=== PATIENT | male | born 1960 | race Caucasian/White ===

== ENCOUNTER 2019-02-18 05:50 | Emergency (ER) | payer MEDICAID ==
[~2019-02-18] VITALS: Ht 172.7 cm; Wt 85.0 kg
[~2019-02-18 05:50] MED LIST: ALBU8.5H8 IH; CARV-49 PO; DOXY-243 PO; FURO40TA4 PO; HYDR-4353 PO; IPRA3AMP9 NEB; LISI2.5T2 PO; POTA10CA44 PO
[2019-02-18 05:53] VITALS: BP 159/91
[2019-02-18] MEDS ORDERED: POLOS RIGHTEYE (06:24)
--- NOTE | 2019-02-18 06:27 | NUR ---
[facility] and received report from Singh THOMAS.
== END 2019-02-18 06:50 | disposition home or self-care (01) ==
LOC: ER 05:51
DX: B99.9 Unspecified infectious disease (principal); H10.89 Other conjunctivitis; H57.11 Ocular pain, right eye; J44.9 Chronic obstructive pulmonary disease, unspecified; I50.9 Heart failure, unspecified; E11.9 Type 2 diabetes mellitus without complications; F12.90 Cannabis use, unspecified, uncomplicated; F15.90 Other stimulant use, unspecified, uncomplicated; Z86.19 Personal history of other infectious and parasitic diseases; Z79.899 Other long term (current) drug therapy; Z88.8 Allergy status to other drugs, medicaments and biological substances
CPT/HCPCS: 99283

== ENCOUNTER 2019-04-24 23:45 | Inpatient (IN) | payer MEDICAID ==
[~2019-04-24] VITALS: Ht 172.7 cm; Wt 85.0 kg
[2019-04-25 01:13] LABS: BASOPHILS % (AUTO) 0.6 % (0-1); EOSINOPHILS # (AUTO) 0.1 X10'3 (0-0.9); EOSINOPHILS % (AUTO) 1.1 % (0-6); HEMATOCRIT 36.5 % (42.0-52.0); HEMOGLOBIN 12.7 g/dl (14.0-17.9); LYMPHOCYTES % (AUTO) 15.6 % (21-51); MEAN CORPUSCULAR HEMOGLOBIN 29.1 PG (27.0-31.0); MEAN CORPUSCULAR HGB CONC 34.8 g/dL (33.0-36.5); MEAN CORPUSCULAR VOLUME 83.4 FL (78-98); MEAN PLATELET VOLUME 9.8 FL (7.4-10.4); MONOCYTES # (AUTO) 0.5 X10'3 (0-0.9); MONOCYTES % (AUTO) 7.5 % (2-12); NEUTROPHILS % (AUTO) 75.2 % (42-75); PLATELET COUNT 197 X10'3 (140-440); RED BLOOD COUNT 4.37 X10'6 (4.70-6.10); RED CELL DISTRIBUTION WIDTH 14.4 % (11.5-14.5); WHITE BLOOD COUNT 6.6 X10'3 (4.5-11.0)
[2019-04-25 01:20] LABS: ALANINE AMINOTRANSFERASE 46 U/L (12-78); ALBUMIN 2.7 G/DL (3.4-5.0); ALBUMIN/GLOBULIN RATIO 0.5 (1.1-1.5); ALKALINE PHOSPHATASE 87 IU/L (46-116); ANION GAP 8 (8-16); ASPARTATE AMINO TRANSFERASE 37 U/L (10-37); BLOOD UREA NITROGEN 14 MG/DL (7-18); BUN/CREATININE RATIO 11.4 (5.4-32.0); CALCIUM 8.1 MG/DL (8.5-10.1); CHLORIDE 102 MMOL/L (99-107); CREATININE 1.23 MG/DL (0.60-1.10); GLUCOSE 175 MG/DL (70-104); POTASSIUM 4.1 MMOL/L (3.5-5.1); SODIUM 136 MMOL/L (135-145); TOTAL CARBON DIOXIDE 25.9 MMOL/L (24-32); TOTAL PROTEIN 7.7 G/DL (6.4-8.2); eGFR 61 ML/MIN
[2019-04-25] MEDS ORDERED: aspirin 81mg tab.chew PO ONE (01:40)
[2019-04-25] MEDS ORDERED: SPIR25TA5 PO (02:31)
[2019-04-25] MEDS ORDERED: ASPI-1265 PO (02:31)
[2019-04-25] MEDS ORDERED: FURO-150 PO (02:31)
[2019-04-25] MEDS ORDERED: LISI-600 PO (02:31)
[2019-04-25] MEDS ORDERED: ATOR20TA PO (02:31)
[2019-04-25] MEDS ORDERED: POTA10CA44 PO (02:32)
[2019-04-25] MEDS ORDERED: enoxaparin 100mg/ml syringe SUBCUT ONE (02:45)
[2019-04-25] MEDS ORDERED: furosemide 10 MG/1 ML 10ml inj IV ONE (02:45)
[2019-04-25] MEDS ORDERED: magnesium Cl slow-release 64mg tablet PO PRN (02:55)
[2019-04-25] MEDS ORDERED: potassium Cl 20 mEq SR tablet PO PRN ×2 (02:55)
[2019-04-25] MEDS ORDERED: acetaminophen 325mg tablet PO PRN (02:55)
[2019-04-25] MEDS ORDERED: mag hydrox/Alum hydrox/simeth 30ml oral suspension PO PRN (02:55)
[2019-04-25] MEDS ORDERED: magnesium 2GM in 50ml NS 50 ML IV PRN (02:55)
[2019-04-25] MEDS ORDERED: ondansetron/PF 4mg/2ml inj IV PRN (02:55)
[2019-04-25] MEDS ORDERED: potassium CL 10mEq/100ml bag 100 ML IV PRN ×2 (02:55)
[2019-04-25] MEDS ORDERED: morphine 2 MG/ML inj. syringe IV PRN ×2 (02:55)
[2019-04-25] MEDS ORDERED: HYDROcodone/acetaminophen 5mg/325mg tablet PO PRN (02:55)
[2019-04-25] MEDS ORDERED: magnesium hydroxide 30ml (MOM) UD suspension PO PRN (02:55)
[2019-04-25] MEDS ORDERED: magnesium 4gm in 100ml NS 100 ML IV PRN (02:55)
--- NOTE | 2019-04-25 06:58 | NUR ---
6 HOUR TROPONIN DRAWN FROM PT IV IN RIGHT HAND.
[2019-04-25 07:30] VITALS: BP 125/79
[2019-04-25] MEDS: K and/or MAG REPLACEMENT MC SCH ×2 (08:00→20:00)
[2019-04-25] MEDS ORDERED: carvedilol 6.25mg tablet PO SCH (08:00)
[2019-04-25] MEDS ORDERED: potassium Cl 20 mEq SR tablet PO SCH (08:00)
--- NOTE | 2019-04-25 08:47 | NUR ---
PAGER ID: [phone] MESSAGE: Kareem [id number]. Pt came from ED with no diet. Can I put in a CC diet order? Blanquita [id number]
[2019-04-25] MEDS: spironolactone 25 MG tablet PO SCH (10:40)
[2019-04-25] MEDS: furosemide 40mg/4ml inj IV SCH ×2 (10:40→19:46)
[2019-04-25] MEDS: aspirin 81mg tab.chew PO SCH (10:41)
[2019-04-25] MEDS: lisinopril 20mg tablet PO SCH (10:42)
[2019-04-25 11:00] VITALS: BP 99/58
[2019-04-25 11:18] LABS: CLARITY,URINE CLEAR (Clear); COLOR,URINE YELLOW (Yellow); GLUCOSE, URINE NEGATIVE (Neg); KETONES,URINE NEGATIVE (Neg); LEUKOCYTE ESTERASE ,URINE NEGATIVE (Neg); NITRITES, URINE NEGATIVE (Neg); OCCULT BLOOD,URINE MODERATE (Neg); PH,URINE 5.5 (4.8-8.0); PROTEIN,URINE NEGATIVE (Neg)
[2019-04-25 11:25] LABS: UA COLLECTION TYPE CLN CATCH MIDSTREAM; URINE AMPHETAMINE SCREEN POSITIVE (Neg); URINE BARBITUATE SCREEN NEGATIVE (Neg); URINE BENZODIAZEPINES SCREEN NEGATIVE (Neg); URINE CANNABINOID SCREEN NEGATIVE (Neg); URINE COCAINE SCREEN NEGATIVE (Neg); URINE METHADONE SCREEN NEGATIVE (Neg); URINE OPIATE SCREEN NEGATIVE (Neg); URINE PHENCYCLIDINE SCREEN NEGATIVE (Neg)
[2019-04-25 11:26] LABS: BACTERIA,URINE NONE SEEN /HPF (Neg); MUCUS STRANDS NONE SEEN /LPF (Neg); RBC,URINE 0-2 /HPF (0-2); SQUAMOUS EPITHELIAL CELL,UR NONE SEEN /LPF (FEW); WBC,URINE NONE SEEN /HPF (0-4)
[2019-04-25 12:08] LABS: HEMOGLOBIN A1C 7.9 % (4.5-6.2)
[2019-04-25 12:15] LABS: CHOL/HDL RATIO 4.3 (0.00-4.99); CHOLESTEROL 102 MG/DL (0-200); HDL CHOLESTEROL 24 MG/DL (35-60); LDL CHOLESTEROL 72 MG/DL (50-100); TRIGLYCERIDES 67 MG/DL (20-135)
[2019-04-25 12:50] LABS: MAGNESIUM 1.4 MG/DL (1.5-2.4); PHOSPHORUS 3.6 MG/DL (2.3-4.5)
[2019-04-25] MEDS ORDERED: magnesium 2GM in 50ml NS 50 ML IV ONE (13:20)
[2019-04-25] MEDS: VANCOMYCIN 1gm/H2O 200ml PB 200 ML IV SCH (14:33)
[2019-04-25 15:00] VITALS: BP 109/55
[2019-04-25] MEDS: CefTRIAXone/D5W-Rocephin 1gm 50 ML IV SCH (17:42)
--- NOTE | 2019-04-25 18:21 | NUR ---
Problems reprioritized. Patient report given, questions answered & plan of care reviewed with Karolina THOMAS.
--- NOTE | 2019-04-25 18:54 | NUR ---
Patient in room PCU 3016. I have received report from MARTHA Juares and had the opportunity to ask questions and assume patient care.
[2019-04-25 18:55] VITALS: BP 103/56
[2019-04-25] MEDS ORDERED: CARV-50 PO (18:55)
[2019-04-25] MEDS ORDERED: POTA8TAB57 PO (18:55)
[2019-04-25] MEDS: magnesium Cl slow-release 64mg tablet PO SCH (19:41)
[2019-04-25] MEDS: lactobacillus rhamnosus 10,000 MMU CELLS/CAPSULE PO SCH (19:43)
[2019-04-25] MEDS: carVEDilol 12.5mg tablet PO SCH (19:44)
[2019-04-25] MEDS ORDERED: atorvastatin 20mg tablet PO SCH (21:00)
--- NOTE | 2019-04-25 21:16 | NUR ---
Patient taken off of Warfarin 5 months ago Addendum: 04/25/19 at 2131 by Stephania Hodge RN Amended: Links added.
[2019-04-25] MEDS: enoxaparin 80mg/0.8ml syringe SUBCUT SCH (21:47)
[2019-04-25 23:43] VITALS: BP 93/57
[2019-04-26] VITALS (8 sets, daily range): BP systolic 88–128; BP diastolic 42–72
[2019-04-26] MEDS: VANCOMYCIN 1gm/H2O 200ml PB 200 ML IV SCH ×2 (01:56→14:37)
[2019-04-26 05:01] LABS: ALBUMIN 2.3 G/DL (3.4-5.0); ANION GAP 4 (8-16); BLOOD UREA NITROGEN 24 MG/DL (7-18); BUN/CREATININE RATIO 17.3 (5.4-32.0); CHLORIDE 103 MMOL/L (99-107); CREATININE 1.39 MG/DL (0.60-1.10); GLUCOSE 196 MG/DL (70-104); MAGNESIUM 1.8 MG/DL (1.5-2.4); SODIUM 137 MMOL/L (135-145); TOTAL CARBON DIOXIDE 30.2 MMOL/L (24-32); eGFR 53 ML/MIN
[2019-04-26 05:02] LABS: POTASSIUM 4.1 MMOL/L (3.5-5.1)
[2019-04-26 05:11] LABS: BASOPHILS % (AUTO) 0.3 % (0-1); EOSINOPHILS # (AUTO) 0.1 X10'3 (0-0.9); EOSINOPHILS % (AUTO) 1.8 % (0-6); HEMATOCRIT 36.7 % (42.0-52.0); HEMOGLOBIN 12.6 g/dl (14.0-17.9); LYMPHOCYTES # (AUTO) 1.2 X10'3 (1.1-4.8); LYMPHOCYTES % (AUTO) 28.4 % (21-51); MEAN CORPUSCULAR HEMOGLOBIN 28.4 PG (27.0-31.0); MEAN CORPUSCULAR HGB CONC 34.3 g/dL (33.0-36.5); MEAN CORPUSCULAR VOLUME 82.7 FL (78-98); MEAN PLATELET VOLUME 10.2 FL (7.4-10.4); MONOCYTES # (AUTO) 0.5 X10'3 (0-0.9); MONOCYTES % (AUTO) 11.9 % (2-12); NEUTROPHILS # (AUTO) 2.5 X10'3 (1.8-7.7); NEUTROPHILS % (AUTO) 57.6 % (42-75); PLATELET COUNT 136 X10'3 (140-440); RED BLOOD COUNT 4.44 X10'6 (4.70-6.10); RED CELL DISTRIBUTION WIDTH 14.4 % (11.5-14.5); WHITE BLOOD COUNT 4.3 X10'3 (4.5-11.0)
--- NOTE | 2019-04-26 06:03 | NUR ---
Problems reprioritized. Patient report given, questions answered & plan of care reviewed with MARTHA Juares.
--- NOTE | 2019-04-26 06:25 | NUR ---
Patient in room PCU 3014. I have received report from Stephania THOMAS and had the opportunity to ask questions and assume patient care.
[2019-04-26] MEDS: K and/or MAG REPLACEMENT MC SCH ×2 (07:21→20:02)
[2019-04-26] MEDS: spironolactone 25 MG tablet PO SCH (08:00)
[2019-04-26] MEDS: carVEDilol 12.5mg tablet PO SCH (08:00)
[2019-04-26] MEDS: lisinopril 20mg tablet PO SCH (08:00)
[2019-04-26] MEDS: furosemide 40mg/4ml inj IV SCH ×2 (08:00→20:08)
[2019-04-26] MEDS: lactobacillus rhamnosus 10,000 MMU CELLS/CAPSULE PO SCH ×2 (09:11→20:07)
[2019-04-26] MEDS: aspirin 81mg tab.chew PO SCH (09:12)
[2019-04-26] MEDS: magnesium Cl slow-release 64mg tablet PO SCH ×2 (09:12→20:07)
[2019-04-26] MEDS: potassium chloride 8mEq ER tablet PO SCH (09:13)
[2019-04-26] MEDS: CefTRIAXone/D5W-Rocephin 1gm 50 ML IV SCH (09:13)
[2019-04-26] MEDS: enoxaparin 80mg/0.8ml syringe SUBCUT SCH ×2 (09:27→20:08)
--- NOTE | 2019-04-26 16:12 | NUR ---
DM consult, Hgb A1c is 7.9; Patient given written DM education handout with verbal review and referral to outpatient DM education class on Friday. Patient would like double protein with meals d/w dietary. Addendum: 04/26/19 at [address] Amended: Links added.
--- NOTE | 2019-04-26 18:16 | NUR ---
Problems reprioritized. Patient report given, questions answered & plan of care reviewed with [place] THOMAS.
--- NOTE | 2019-04-26 18:30 | NUR ---
[place]rientee documentation: I have reviewed and agree with interventions, assessments performed and documented by Yani THOMAS. [place] Medication Administration: For this medication-pass time frame, medication were reviewed, dispensed, administered and documented per hospital policy by Yani THOMAS .
--- NOTE | 2019-04-26 18:39 | NUR ---
Patient in room PCU 3009. I have received report from Blanquita Timmons RN and had the opportunity to ask questions and assume patient care.
[2019-04-26] MEDS: carvedilol 6.25mg tablet PO SCH (20:07)
[2019-04-26] MEDS: mineral oil/petrolatum, white cream 113gm jar TP SCH (20:28)
[2019-04-27] MEDS ORDERED: VANCOMYCIN LEVEL IV ONE (01:30)
[2019-04-27] MEDS: VANCOMYCIN 1gm/H2O 200ml PB 200 ML IV SCH (01:44)
[2019-04-27 02:00] VITALS: BP 95/62
[2019-04-27 02:06] LABS: BASOPHILS % (AUTO) 0.6 % (0-1); EOSINOPHILS # (AUTO) 0.1 X10'3 (0-0.9); EOSINOPHILS % (AUTO) 1.8 % (0-6); HEMATOCRIT 36.7 % (42.0-52.0); HEMOGLOBIN 12.7 g/dl (14.0-17.9); LYMPHOCYTES % (AUTO) 25.9 % (21-51); MEAN CORPUSCULAR HEMOGLOBIN 28.6 PG (27.0-31.0); MEAN CORPUSCULAR HGB CONC 34.6 g/dL (33.0-36.5); MEAN CORPUSCULAR VOLUME 82.7 FL (78-98); MEAN PLATELET VOLUME 10.1 FL (7.4-10.4); MONOCYTES # (AUTO) 0.4 X10'3 (0-0.9); MONOCYTES % (AUTO) 10.1 % (2-12); NEUTROPHILS # (AUTO) 2.3 X10'3 (1.8-7.7); NEUTROPHILS % (AUTO) 61.6 % (42-75); PLATELET COUNT 155 X10'3 (140-440); RED BLOOD COUNT 4.43 X10'6 (4.70-6.10); RED CELL DISTRIBUTION WIDTH 14.8 % (11.5-14.5); WHITE BLOOD COUNT 3.7 X10'3 (4.5-11.0)
[2019-04-27 02:13] LABS: ALBUMIN 2.4 G/DL (3.4-5.0); ANION GAP 7 (8-16); BLOOD UREA NITROGEN 19 MG/DL (7-18); BUN/CREATININE RATIO 15.2 (5.4-32.0); CALCIUM 7.8 MG/DL (8.5-10.1); CHLORIDE 102 MMOL/L (99-107); CREATININE 1.25 MG/DL (0.60-1.10); GLUCOSE 188 MG/DL (70-104); MAGNESIUM 1.6 MG/DL (1.5-2.4); POTASSIUM 3.9 MMOL/L (3.5-5.1); SODIUM 136 MMOL/L (135-145); TOTAL CARBON DIOXIDE 27.3 MMOL/L (24-32); VANCOMYCIN,TROUGH 10.5 UG/ML (6.0-14.0); eGFR 60 ML/MIN
[2019-04-27 06:00] VITALS: BP 112/70
--- NOTE | 2019-04-27 06:05 | NUR ---
Problems reprioritized. Patient report given, questions answered & plan of care reviewed with Blanquita Timmons RN.
[2019-04-27] MEDS: K and/or MAG REPLACEMENT MC SCH (08:00)
[2019-04-27] MEDS: mineral oil/petrolatum, white cream 113gm jar TP SCH (08:00)
[2019-04-27] MEDS ORDERED: lisinopril 10 MG tablet PO SCH (08:00)
[2019-04-27] MEDS: enoxaparin 80mg/0.8ml syringe SUBCUT SCH (08:05)
[2019-04-27] MEDS: aspirin 81mg tab.chew PO SCH (08:05)
[2019-04-27] MEDS: furosemide 40mg/4ml inj IV SCH (08:05)
[2019-04-27] MEDS: spironolactone 25 MG tablet PO SCH (08:05)
[2019-04-27] MEDS: magnesium Cl slow-release 64mg tablet PO SCH (08:06)
[2019-04-27] MEDS: lactobacillus rhamnosus 10,000 MMU CELLS/CAPSULE PO SCH (08:06)
[2019-04-27] MEDS: potassium chloride 8mEq ER tablet PO SCH (08:07)
[2019-04-27] MEDS: CefTRIAXone/D5W-Rocephin 1gm 50 ML IV SCH (08:07)
[2019-04-27] MEDS: carvedilol 6.25mg tablet PO SCH (08:07)
[2019-04-27 11:00] VITALS: BP 97/59
[2019-04-27] MEDS ORDERED: SULF1TAB49 PO (11:18)
[2019-04-27] MEDS ORDERED: ASPI-1265 PO (11:18)
[2019-04-27] MEDS ORDERED: FURO-150 PO (11:18)
[2019-04-27] MEDS ORDERED: ATOR20TA PO (11:18)
[2019-04-27] MEDS ORDERED: CARV-50 PO (11:18)
[2019-04-27] MEDS ORDERED: ZAR2.5T PO (11:18)
[2019-04-27] MEDS ORDERED: WOOL454C TP (11:18)
[2019-04-27] MEDS ORDERED: POTA8TAB57 PO (11:24)
[2019-04-27] MEDS ORDERED: LISI-600 PO (11:24)
[2019-04-27] MEDS ORDERED: SPIR25TA5 PO (11:24)
--- NOTE | 2019-04-27 14:57 | NUR ---
Patient discharged home at 1455. Patient reviewed discharge packet and instructions prior to signing. All belongings were sent with Pt, PIV was removed with cannula intact and telelmetry was d/c'd. Rx were faxed to [facility], Patient was wheeled down and left via private vehicle.
== END 2019-04-27 14:55 | disposition home or self-care (01) | DRG 194 ==
LOC: ER 23:46 → ED HOLD 04-25 02:54 → PCU 3S 04-25 07:17
PROVIDERS: ADMIT Hospitalist; ATTEND Family Medicine
DX: I13.0 Hypertensive heart and chronic kidney disease with heart failure and stage 1 through stage 4 chronic kidney disease, or unspecified chronic kidney disease (principal); E11.649 Type 2 diabetes mellitus with hypoglycemia without coma; L03.115 Cellulitis of right lower limb; L03.116 Cellulitis of left lower limb; I42.7 Cardiomyopathy due to drug and external agent; E83.42 Hypomagnesemia; I50.23 Acute on chronic systolic (congestive) heart failure; F15.90 Other stimulant use, unspecified, uncomplicated; N18.9 Chronic kidney disease, unspecified; J44.9 Chronic obstructive pulmonary disease, unspecified; I25.10 Atherosclerotic heart disease of native coronary artery without angina pectoris; Z83.3 Family history of diabetes mellitus; Z79.4 Long term (current) use of insulin; Z88.1 Allergy status to other antibiotic agents
CPT/HCPCS: 36415; 71045; 80048; 80053; 80061; 80202; 80305; 81001; 83036; 83735; 83880; 84100; 84443; 84484; 85025; 87081; 93306; 99285; G0378; J0696; J1650; J1940; J2270; J3370; J3475

== ENCOUNTER 2019-07-02 02:48 | Inpatient (IN) | payer MEDICAID ==
[~2019-07-02] VITALS: Ht 172.7 cm; Wt 81.8 kg
[~2019-07-02 02:48] MED LIST changes: +ASPI-1265 PO; +ATOR20TA PO; -CARV-49 PO; +CARV-50 PO; -DOXY-243 PO; +FURO-150 PO; -FURO40TA4 PO; -HYDR-4353 PO; -IPRA3AMP9 NEB; +LISI-600 PO; -LISI2.5T2 PO; -POTA10CA44 PO; +POTA8TAB57 PO; +SPIR25TA5 PO; +WOOL454C TP; +ZAR2.5T PO
[2019-07-02 03:14] LABS: BASOPHILS % (AUTO) 0.5 % (0-1); EOSINOPHILS % (AUTO) 0.8 % (0-6); HEMATOCRIT 36.6 % (42.0-52.0); HEMOGLOBIN 12.4 g/dl (14.0-17.9); LYMPHOCYTES # (AUTO) 0.9 X10'3 (1.1-4.8); LYMPHOCYTES % (AUTO) 15.2 % (21-51); MEAN CORPUSCULAR HEMOGLOBIN 27.1 PG (27.0-31.0); MEAN CORPUSCULAR HGB CONC 33.8 g/dL (33.0-36.5); MEAN CORPUSCULAR VOLUME 80.1 FL (78-98); MEAN PLATELET VOLUME 9.7 FL (7.4-10.4); MONOCYTES # (AUTO) 0.4 X10'3 (0-0.9); NEUTROPHILS # (AUTO) 4.5 X10'3 (1.8-7.7); NEUTROPHILS % (AUTO) 76.5 % (42-75); PLATELET COUNT 157 X10'3 (140-440); RED BLOOD COUNT 4.57 X10'6 (4.70-6.10); RED CELL DISTRIBUTION WIDTH 15.5 % (11.5-14.5); WHITE BLOOD COUNT 5.9 X10'3 (4.5-11.0)
[2019-07-02 03:36] LABS: ALANINE AMINOTRANSFERASE 40 U/L (12-78); ALBUMIN 2.2 G/DL (3.4-5.0); ALBUMIN/GLOBULIN RATIO 0.4 (1.1-1.5); ALKALINE PHOSPHATASE 220 IU/L (46-116); ANION GAP 5 (8-16); ASPARTATE AMINO TRANSFERASE 154 U/L (10-37); BILIRUBIN,TOTAL 0.9 MG/DL (0.1-1.0); BLOOD UREA NITROGEN 12 MG/DL (7-18); BUN/CREATININE RATIO 9.7 (5.4-32.0); CALCIUM 8.2 MG/DL (8.5-10.1); CHLORIDE 98 MMOL/L (99-107); CREATININE 1.24 MG/DL (0.60-1.10); GLUCOSE 259 MG/DL (70-104); POTASSIUM 3.6 MMOL/L (3.5-5.1); SODIUM 131 MMOL/L (135-145); TOTAL CARBON DIOXIDE 28.4 MMOL/L (24-32); TOTAL PROTEIN 7.6 G/DL (6.4-8.2); eGFR 60 ML/MIN
[2019-07-02] MEDS ORDERED: aspirin 81mg tab.chew PO ONE (04:10)
[2019-07-02] MEDS ORDERED: enoxaparin 100mg/ml syringe SUBCUT ONE (04:10)
[2019-07-02] MEDS ORDERED: nitroGLYCERIN 0.4mg/hour patch TD ONE (04:10)
[2019-07-02] MEDS ORDERED: lisinopril 10 MG tablet PO ONE (04:15)
[2019-07-02] MEDS ORDERED: carVEDilol 12.5mg tablet PO SCH (04:15)
[2019-07-02] MEDS ORDERED: metoprolol tartrate 1mg/ml inj IV ONE (04:35)
[2019-07-02 04:55] LABS: PARTIAL THROMBOPLASTIN TIME 26 SECONDS (22-32)
[2019-07-02 05:04] LABS: MAGNESIUM 1.6 MG/DL (1.5-2.4)
[2019-07-02 05:06] LABS: ETHANOL < 0.010 GM/DL (0.0-0.010)
[2019-07-02] MEDS ORDERED: magnesium hydroxide 30ml (MOM) UD suspension PO PRN (05:10)
[2019-07-02] MEDS ORDERED: potassium Cl 20 mEq SR tablet PO PRN ×2 (05:10)
[2019-07-02] MEDS ORDERED: magnesium 4gm in 100ml NS 100 ML IV PRN (05:10)
[2019-07-02] MEDS ORDERED: mag hydrox/Alum hydrox/simeth 30ml oral suspension PO PRN (05:10)
[2019-07-02] MEDS ORDERED: magnesium 2GM in 50ml NS 50 ML IV PRN (05:10)
[2019-07-02] MEDS ORDERED: ondansetron/PF 4mg/2ml inj IV PRN (05:10)
[2019-07-02] MEDS ORDERED: acetaminophen 325mg tablet PO PRN (05:10)
[2019-07-02] MEDS ORDERED: potassium CL 10mEq/100ml bag 100 ML IV PRN ×2 (05:10)
[2019-07-02] MEDS ORDERED: glucagon, human recombinant 1mg kit SUBCUT PRN (05:15)
[2019-07-02] MEDS ORDERED: dextrose ORAL solution 15 GM/59 ML bottle PO PRN ×2 (05:15)
[2019-07-02] MEDS ORDERED: dextrose 50%-water 50ml dispensing syringe IV PRN ×2 (05:15)
[2019-07-02] MEDS ORDERED: MESSAGE TO PHARMACY PO ONE (05:15)
--- NOTE | 2019-07-02 06:04 | NUR ---
PT BP DROPPED TO 70S/40S, NTG PATCH TAKEN OFF AND PLACED ROD JACKSON MD CALLED AND CAME TO BEDSIDE AND ORDERED TO WRAP PT LEGS. WILL CONTINUE TO MONITOR
--- NOTE | 2019-07-02 07:15 | NUR ---
Patient in room PCU 3010. I have received report from Elba, OPERATIONS RESEARCH GROUP MANAGER NURSE and had the opportunity to ask questions and assume patient care.
[2019-07-02 07:20] VITALS: BP 65/36
--- NOTE | 2019-07-02 07:20 | NUR ---
Pt arrived to rm 3021. A&Ox4 NAD tele 57 applied
[2019-07-02] MEDS: lisinopril 10 MG tablet PO SCH (08:00)
[2019-07-02] MEDS: K and/or MAG REPLACEMENT MC SCH ×2 (08:00→20:00)
[2019-07-02] MEDS: furosemide 10 MG/1 ML 10ml inj IV SCH ×2 (08:00→21:58)
[2019-07-02] MEDS: carVEDilol 12.5mg tablet PO SCH ×2 (08:00→21:56)
[2019-07-02] MEDS: heparin, porcine 5000 units/ml vial SQ SCH ×2 (08:00→21:56)
[2019-07-02 09:00] VITALS: BP 85/61
--- NOTE | 2019-07-02 09:12 | NUR ---
Pt with A1c 7.9 recently admitted and seen by RD 04/26 for written and verbal DM education with referral to outpatient CDE course and RD contact information. No further education warranted at this time. Will continue to follow. Addendum: 07/02/19 at [address] Amended: Links added.
--- NOTE | 2019-07-02 10:53 | NUR ---
[id number] MESSAGE: CRITICAL LAB Rm 3021 Charan Hitchcock 6 hr Trop 1.12-- down from 1.98 andry Bui
[2019-07-02] MEDS ORDERED: METF500T PO (11:27)
[2019-07-02] MEDS ORDERED: ASPI-1144 PO (11:48)
[2019-07-02] MEDS ORDERED: ATOR20TA66 PO (11:51)
[2019-07-02] MEDS ORDERED: POTA8TAB57 PO (11:54)
[2019-07-02] MEDS ORDERED: SPIR25TA5 PO (11:57)
[2019-07-02] MEDS ORDERED: CARV12.5 PO (11:57)
[2019-07-02] MEDS ORDERED: LISI-600 PO (11:57)
[2019-07-02] MEDS ORDERED: ALBU8.5H8 INH (11:57)
[2019-07-02] MEDS ORDERED: FURO-150 PO (12:00)
[2019-07-02] MEDS: insulin Lispro (HumaLOG) vial - multi-dose SQ SCH ×2 (14:20→18:35)
[2019-07-02 15:00] VITALS: BP 93/56
--- NOTE | 2019-07-02 18:40 | NUR ---
Problems reprioritized. Patient report given, questions answered & plan of care reviewed with andry Mendiola.
--- NOTE | 2019-07-02 18:52 | NUR ---
received report from MARTHA Armstrong
[2019-07-02 18:58] VITALS: BP 117/76
--- NOTE | 2019-07-02 19:47 | NUR ---
per pt H&P his last EKG no showed ischemic changes. no EKG in his chart to review.
[2019-07-02] MEDS: insulin glargine (Lantus) pen - multi-dose SQ SCH (21:00)
--- NOTE | 2019-07-02 21:22 | NUR ---
spoke with Dr. Thornton about pt's complaint of generalized pain all over 10/28. received orders for norco 5 q 4 hr PRN for moderate to severe pain.
[2019-07-02] MEDS: HYDROcodone/acetaminophen 5mg/325mg tablet PO PRN (21:26)
--- NOTE | 2019-07-02 21:39 | NUR ---
spoke with charge nurse about pt's blood sugar in ER at 2am on 07/01 of 259. was advised to disregard blood sugar from ER. pt arrived to floor at 7am 07/01. going off of dinner blood sugar of 77 and 2100 blood sugar of 183, pt technically did not meet protocol yet. pt was covered for dinner time as pt was level 2 on protocol per bedside report. pt is now starting over as he has not met protocol while being on the floor.
[2019-07-02 22:00] VITALS: BP 109/74
--- NOTE | 2019-07-02 22:00 | NUR ---
pt stated he "usually gets dilaudid" when he is in the hospital. med ordered by MD for mod-severe pain is norco 5.
--- NOTE | 2019-07-03 00:23 | NUR ---
pt had four beat run of v-tach at 2340 07/01. aware.
[2019-07-03 02:00] VITALS: BP 92/60
[2019-07-03 06:00] VITALS: BP 134/75
[2019-07-03 06:20] LABS: BASOPHILS % (AUTO) 0.4 % (0-1); EOSINOPHILS # (AUTO) 0.1 X10'3 (0-0.9); EOSINOPHILS % (AUTO) 2.2 % (0-6); HEMATOCRIT 35.4 % (42.0-52.0); HEMOGLOBIN 11.8 g/dl (14.0-17.9); LYMPHOCYTES # (AUTO) 0.7 X10'3 (1.1-4.8); LYMPHOCYTES % (AUTO) 18.8 % (21-51); MEAN CORPUSCULAR HEMOGLOBIN 26.6 PG (27.0-31.0); MEAN CORPUSCULAR HGB CONC 33.3 g/dL (33.0-36.5); MEAN CORPUSCULAR VOLUME 79.7 FL (78-98); MEAN PLATELET VOLUME 9.8 FL (7.4-10.4); MONOCYTES # (AUTO) 0.3 X10'3 (0-0.9); NEUTROPHILS # (AUTO) 2.7 X10'3 (1.8-7.7); NEUTROPHILS % (AUTO) 69.6 % (42-75); PLATELET COUNT 139 X10'3 (140-440); RED BLOOD COUNT 4.44 X10'6 (4.70-6.10); RED CELL DISTRIBUTION WIDTH 15.7 % (11.5-14.5); WHITE BLOOD COUNT 3.8 X10'3 (4.5-11.0)
--- NOTE | 2019-07-03 06:25 | NUR ---
gave report to MARTHA Armstrong
--- NOTE | 2019-07-03 06:27 | NUR ---
Patient in room PCU 3021. I have received report from MARTHA Nicholson and had the opportunity to ask questions and assume patient care.
[2019-07-03 06:29] LABS: ALANINE AMINOTRANSFERASE 57 U/L (12-78); ALBUMIN 1.9 G/DL (3.4-5.0); ALBUMIN/GLOBULIN RATIO 0.4 (1.1-1.5); ALKALINE PHOSPHATASE 239 IU/L (46-116); ANION GAP 3 (8-16); ASPARTATE AMINO TRANSFERASE 332 U/L (10-37); BILIRUBIN,TOTAL 0.6 MG/DL (0.1-1.0); BLOOD UREA NITROGEN 14 MG/DL (7-18); BUN/CREATININE RATIO 11.2 (5.4-32.0); CALCIUM 7.5 MG/DL (8.5-10.1); CHLORIDE 99 MMOL/L (99-107); CREATININE 1.25 MG/DL (0.60-1.10); GLUCOSE 214 MG/DL (70-104); MAGNESIUM 1.4 MG/DL (1.5-2.4); POTASSIUM 3.5 MMOL/L (3.5-5.1); SODIUM 133 MMOL/L (135-145); TOTAL CARBON DIOXIDE 30.7 MMOL/L (24-32); TOTAL PROTEIN 6.8 G/DL (6.4-8.2); eGFR 60 ML/MIN
[2019-07-03] MEDS: K and/or MAG REPLACEMENT MC SCH ×2 (08:00→19:11)
[2019-07-03] MEDS: HYDROcodone/acetaminophen 5mg/325mg tablet PO PRN ×2 (09:14→21:56)
[2019-07-03] MEDS: furosemide 10 MG/1 ML 10ml inj IV SCH ×2 (09:20→19:10)
[2019-07-03] MEDS: heparin, porcine 5000 units/ml vial SQ SCH ×2 (09:21→19:09)
[2019-07-03] MEDS: carVEDilol 12.5mg tablet PO SCH ×2 (09:22→19:10)
[2019-07-03] MEDS: lisinopril 10 MG tablet PO SCH (09:23)
[2019-07-03] MEDS: insulin Lispro (HumaLOG) vial - multi-dose SQ SCH ×3 (09:39→19:03)
[2019-07-03 11:00] VITALS: BP 83/60
[2019-07-03 15:00] VITALS: BP 120/71
[2019-07-03] MEDS: magnesium Cl slow-release 64mg tablet PO PRN (19:03)
--- NOTE | 2019-07-03 19:17 | NUR ---
Problems reprioritized. Patient report given, questions answered & plan of care reviewed with MARTHA Hood.
[2019-07-03] MEDS: insulin glargine (Lantus) pen - multi-dose SQ SCH (21:28)
[2019-07-03 22:00] VITALS: BP 100/63
--- NOTE | 2019-07-04 | NUR ---
Patient in room PCU 3021. I have received report from Erwin THOMAS and had the opportunity to ask questions and assume patient care.
[2019-07-04 02:00] VITALS: BP 105/61
--- NOTE | 2019-07-04 05:58 | NUR ---
Student documentation: I have reviewed and agree with all interventions, assessments performed and documented by HEATHER student RN. Student Medication Administration: For this medication-pass time frame, all medication were reviewed, dispensed, administered and documented per hospital policy by HEATHER alonzo RN.
[2019-07-04 06:00] VITALS: BP 116/71
[2019-07-04 06:06] LABS: BASOPHILS % (AUTO) 0.4 % (0-1); EOSINOPHILS % (AUTO) 0.7 % (0-6); HEMOGLOBIN 13.2 g/dl (14.0-17.9); LYMPHOCYTES # (AUTO) 0.8 X10'3 (1.1-4.8); MEAN CORPUSCULAR HGB CONC 33.8 g/dL (33.0-36.5); MEAN PLATELET VOLUME 9.7 FL (7.4-10.4); MONOCYTES # (AUTO) 0.5 X10'3 (0-0.9); MONOCYTES % (AUTO) 9.8 % (2-12); NEUTROPHILS # (AUTO) 4.1 X10'3 (1.8-7.7); NEUTROPHILS % (AUTO) 75.1 % (42-75); PLATELET COUNT 139 X10'3 (140-440); RED BLOOD COUNT 4.87 X10'6 (4.70-6.10); RED CELL DISTRIBUTION WIDTH 15.5 % (11.5-14.5); WHITE BLOOD COUNT 5.5 X10'3 (4.5-11.0)
--- NOTE | 2019-07-04 06:09 | NUR ---
Problems reprioritized. Patient report given, questions answered & plan of care reviewed with Misti THOMAS.
[2019-07-04 06:32] LABS: ALANINE AMINOTRANSFERASE 57 U/L (12-78); ALBUMIN 1.9 G/DL (3.4-5.0); ALBUMIN/GLOBULIN RATIO 0.4 (1.1-1.5); ALKALINE PHOSPHATASE 241 IU/L (46-116); ANION GAP 9 (8-16); ASPARTATE AMINO TRANSFERASE 360 U/L (10-37); BLOOD UREA NITROGEN 13 MG/DL (7-18); BUN/CREATININE RATIO 11.7 (5.4-32.0); CALCIUM 7.8 MG/DL (8.5-10.1); CHLORIDE 99 MMOL/L (99-107); CREATININE 1.11 MG/DL (0.60-1.10); GLUCOSE 113 MG/DL (70-104); MAGNESIUM 1.4 MG/DL (1.5-2.4); POTASSIUM 3.6 MMOL/L (3.5-5.1); SODIUM 136 MMOL/L (135-145); TOTAL CARBON DIOXIDE 27.9 MMOL/L (24-32); TOTAL PROTEIN 7.1 G/DL (6.4-8.2); eGFR 68 ML/MIN
--- NOTE | 2019-07-04 06:59 | NUR ---
Patient in room PCU 3021. I have received report from MARTHA BUTTS and had the opportunity to ask questions and assume patient care. PT RESTING COMFORTABLY IN BED, AWAKE, ALERT AND ORIENTED.
[2019-07-04] MEDS: furosemide 10 MG/1 ML 10ml inj IV SCH (08:00)
[2019-07-04] MEDS: K and/or MAG REPLACEMENT MC SCH (08:00)
[2019-07-04] MEDS: lisinopril 10 MG tablet PO SCH (08:30)
[2019-07-04] MEDS: carVEDilol 12.5mg tablet PO SCH (08:30)
[2019-07-04] MEDS: heparin, porcine 5000 units/ml vial SQ SCH (08:31)
[2019-07-04] MEDS: magnesium Cl slow-release 64mg tablet PO PRN (08:39)
--- NOTE | 2019-07-04 08:50 | NUR ---
pt refused insulin meal coverage, he states he is afraid it will make him hypoglycemic with am blood sugar of 90
--- NOTE | 2019-07-04 08:58 | NUR ---
spoke with Dr. Lawton, notified her am lasix held due to borderline BP. MD said that is alright, she will discharge him
[2019-07-04 11:00] VITALS: BP 96/59
--- NOTE | 2019-07-04 11:33 | NUR ---
PT DISCHARGED IN STABLE CONDITION, ALL BELONGINGS SENT HOME WITH PT. PIV DC'D. TELE DC'D. PT TAKEN BY WHEEL CHAIR TO [facility]. PT WILL CALL AND SCHED APPT WITH [facility] SINCE THEY ARE NOT OPEN ON FRIDAY. DIABETIC SURVIVAL SKILLS GIVEN TO PT ON D/C WITH HGB A1C 9.1
[2019-07-04 16:02] LABS: HBSAG SCREEN Negative (Negative); HEP B CORE AB, IGM Negative (Negative); HEPATITIS C ANTIBODY >11.0 s/co ratio (0.0-0.9)
== END 2019-07-04 11:25 | disposition home or self-care (01) | DRG 194 ==
LOC: ER 02:49 → ED HOLD 05:10 → UNDOADMIN 05:15 → ED HOLD 05:15 → PCU 3S 07:09 → ED HOLD 07:09 → PCU 3S 09:06
PROVIDERS: ADMIT Internal Medicine; ATTEND Internal Medicine
DX: I13.0 Hypertensive heart and chronic kidney disease with heart failure and stage 1 through stage 4 chronic kidney disease, or unspecified chronic kidney disease (principal); E11.22 Type 2 diabetes mellitus with diabetic chronic kidney disease; I42.7 Cardiomyopathy due to drug and external agent; B19.10 Unspecified viral hepatitis B without hepatic coma; N18.3 Chronic kidney disease, stage 3 (moderate); I50.23 Acute on chronic systolic (congestive) heart failure; I25.5 Ischemic cardiomyopathy; I25.10 Atherosclerotic heart disease of native coronary artery without angina pectoris; E11.65 Type 2 diabetes mellitus with hyperglycemia; J44.9 Chronic obstructive pulmonary disease, unspecified; I25.2 Old myocardial infarction; Z79.4 Long term (current) use of insulin; Z91.14 Patient's other noncompliance with medication regimen
CPT/HCPCS: 36415; 71045; 80053; 80320; 82948; 83036; 83735; 83880; 84484; 85025; 85610; 85730; 86705; 86803; 87081; 87340; 93005; 97116; 97161; 97530; 99285; G0378; J1644; J1650; J1815; J1940; J3490